=== PATIENT | female | born 1955 | race Caucasian/White ===

== ENCOUNTER 2018-02-23 16:39 | Inpatient (IN) | payer OTHER ==
[~2018-02-23] VITALS: Ht 162.6 cm; Wt 71.8 kg
[2018-02-23 16:41] VITALS: Ht 162.6 cm; Wt 71.8 kg
[2018-02-23 17:37] LABS: BASOPHIL % 0.2 % (0-2)
[2018-02-23 17:38] LABS: PLATELET COUNT 115 x10^3mcL (130-400)
[2018-02-23 17:43] LABS: CALCIUM 7.6 mg/dL (8.5-10.1); CARBON DIOXIDE 26.2 mmol/L (21-32); CHLORIDE SERUM 107 mmol/L (98-107); CREATININE SERUM 0.6 mg/dL (0.6-1.0); GFR1 > 60 mL/min; GLUCOSE SERUM 89 mg/dL (74-106); POTASSIUM SERUM 3.6 mmol/L (3.5-5.1); SODIUM SERUM 139 mmol/L (136-145)
[2018-02-23 17:48] LABS: ALBUMIN 2.8 g/dL (3.4-5.0); ALKALINE PHOSPHATASE 76 U/L (46-116); ALT/SGPT 43 U/L (14-59); AST/SGOT 39 U/L (15-37); BILIRUBIN TOTAL 0.4 mg/dL (0.20-1.00); LIPASE 73 IU/L (73-393); TOTAL PROTEIN, SERUM 7.2 g/dL (6.4-8.2)
[2018-02-24] VITALS (7 sets, daily range): BP systolic 85–112; BP diastolic 50–65
[2018-02-24] MEDS ORDERED: FENTANYL TR25 MCG/H1 TD (00:27)
[2018-02-24] MEDS ORDERED: PROAIR HFA8.5 GM IH (00:28)
[2018-02-24] MEDS ORDERED: LYRICA50 M1 PO (00:29)
[2018-02-24] MEDS ORDERED: PANCREAZE DR 41 EACH PO (00:32)
[2018-02-24] MEDS ORDERED: VITD PO (00:34)
[2018-02-24] MEDS ORDERED: FUROSEMIDE20 MG PO (00:34)
[2018-02-24] MEDS ORDERED: RESTASIS0.051 OU (00:35)
[2018-02-24 06:28] LABS: CALCIUM 6.8 mg/dL (8.5-10.1); CHLORIDE SERUM 110 mmol/L (98-107); CREATININE SERUM 0.6 mg/dL (0.6-1.0); GFR1 > 60 mL/min; GLUCOSE SERUM 90 mg/dL (74-106); POTASSIUM SERUM 3.7 mmol/L (3.5-5.1); SODIUM SERUM 141 mmol/L (136-145)
[2018-02-24 06:47] LABS: PLATELET COUNT 98 x10^3mcL (130-400); RED CELL DISTRIBUTION WIDTH 14.7 % (11.5-14.5)
[2018-02-24 08:40] LABS: BAND NEUTROPHIL 2 % (0-10); BASOPHIL 0 % (0-2); MONOCYTE 11 % (0-7); PLATELET MORPHOLOGY PLATELETS DECREASED; SEGMENTED NEUTROPHILS 50 % (37-75); ovalocyte/elliptocyte 1+; rbc morphology (normal/abnorm) ABNORMAL (NORMAL)
[2018-02-24] MEDS ORDERED: MORPHINE SULFAT30 M2 PO (19:54)
[2018-02-25 04:00] VITALS: BP 100/60
[2018-02-25 05:11] VITALS: BP 99/64
[2018-02-25 07:08] LABS: CALCIUM 6.9 mg/dL (8.5-10.1); CARBON DIOXIDE 19.4 mmol/L (21-32); CHLORIDE SERUM 114 mmol/L (98-107); CREATININE SERUM 0.5 mg/dL (0.6-1.0); GFR1 > 60 mL/min; GLUCOSE SERUM 117 mg/dL (74-106); SODIUM SERUM 143 mmol/L (136-145)
[2018-02-25 07:11] LABS: POTASSIUM SERUM 2.7 mmol/L (3.5-5.1)
[2018-02-25 07:51] LABS: BASOPHIL % 0.4 % (0-2)
[2018-02-25 07:54] LABS: PLATELET COUNT 95 x10^3mcL (130-400); RED CELL DISTRIBUTION WIDTH 14.8 % (11.5-14.5)
[2018-02-25 09:15] VITALS: BP 107/67
[2018-02-25 13:30] VITALS: BP 110/71
[2018-02-25 13:52] VITALS: BP 110/71
== END 2018-02-25 17:23 | disposition home or self-care (01) | DRG 433 ==
LOC: ED 16:39 → DU 23:49
PROVIDERS: Emergency Medicine; Internal Medicine; Internal Medicine Gastroenterology
PROC: 0DJ08ZZ Inspection of Upper Intestinal Tract, Via Natural or Artificial Opening Endoscopic (ICD-10-PCS; principal; 2018-02-24 13:00)
DX: K74.69 Other cirrhosis of liver (principal); R18.8 Other ascites; I85.10 Secondary esophageal varices without bleeding; K76.6 Portal hypertension; K52.9 Noninfective gastroenteritis and colitis, unspecified; G89.4 Chronic pain syndrome; Z98.84 Bariatric surgery status; Z68.26 Body mass index [BMI] 26.0-26.9, adult
CPT/HCPCS: 43235; J1200; J1610; J1940; J2250; J2270; J2310; J2543; J3010; J3480; J3490; J3535; J7030; J7042; J7620; Q0092; Q9966; Q9967

== ENCOUNTER 2018-06-16 12:42 | Emergency (ER) | payer OTHER ==
[~2018-06-16] VITALS: Ht 162.6 cm; Wt 58.3 kg
[~2018-06-16 12:42] MED LIST: FENTANYL TR25 MCG/H1 TD; FUROSEMIDE20 MG PO; LYRICA50 M1 PO; MORPHINE SULFAT30 M2 PO; PANCREAZE DR 41 EACH PO; PROAIR HFA8.5 GM IH; RESTASIS0.051 OU; VITD PO
[2018-06-16 12:56] VITALS: Ht 162.6 cm; Wt 58.3 kg
[2018-06-16 13:47] LABS: BASOPHIL % 0.3 % (0-2)
[2018-06-16 13:50] LABS: PLATELET COUNT 116 x10^3mcL (130-400); RED CELL DISTRIBUTION WIDTH 14.9 % (11.5-14.5)
[2018-06-16 14:01] LABS: CALCIUM 8.5 mg/dL (8.5-10.1); CARBON DIOXIDE 20.6 mmol/L (21-32); CHLORIDE SERUM 103 mmol/L (98-107); CREATININE SERUM 0.8 mg/dL (0.6-1.0); GFR1 > 60 mL/min; GLUCOSE SERUM 121 mg/dL (74-106); POTASSIUM SERUM 3.3 mmol/L (3.5-5.1); SODIUM SERUM 136 mmol/L (136-145)
[2018-06-16 14:05] LABS: ALBUMIN 3.7 g/dL (3.4-5.0); ALKALINE PHOSPHATASE 66 U/L (46-116); ALT/SGPT 61 U/L (14-59); AST/SGOT 40 U/L (15-37); BILIRUBIN TOTAL 0.7 mg/dL (0.20-1.00)
[2018-06-16 14:06] LABS: CHOLESTEROL 125 mg/dL (<200); TOTAL PROTEIN, SERUM 8.3 g/dL (6.4-8.2)
[2018-06-16 15:06] LABS: UA SPECIFIC GRAVITY 1.025 (1.005-1.035); microscopic required? YES; urine erythrocyte TRACE (NEGATIVE)
[2018-06-16 15:16] LABS: AMPHETAMINE QUAL UR NONE DETECTED (See below)
[2018-06-16 16:19] VITALS: BP 105/73
== END 2018-06-16 16:19 | disposition left against medical advice (07) ==
LOC: ED 12:42
PROVIDERS: Specialist
DX: R53.1 Weakness (principal); R11.0 Nausea; K74.60 Unspecified cirrhosis of liver; D61.818 Other pancytopenia; Z98.84 Bariatric surgery status; Z88.1 Allergy status to other antibiotic agents
CPT/HCPCS: 36600; 87804; G0480; J2405; J7040; Q0092